=== PATIENT | male | born 1995 | race Caucasian/White ===

== ENCOUNTER 2025-02-07 07:42 | Day surgery (SDC) | payer BC ==
[2025-02-06 09:49] VITALS: BMI 21.6
[2025-02-07] MEDS ORDERED: PROPOFOL 20 ML ONE ×2 (09:45→11:25)
[2025-02-07] MEDS ORDERED: Rocuronium Bromide 10 MG/ML (10ML VIAL) ONE (09:45)
[2025-02-07 10:33] LABS: #Basophils Less than 0.03 10x3/uL (0.0-0.2); #Eosinophils Less than 0.03 10x3/uL (0.0-0.7); #Monocytes 0.98 10x3/uL (0.11-0.59); #Neutrophils 12.03 10x3/uL (1.40-6.50); %Basophils 0.1 % (0.0-1.0); %Eosinophils 0.0 % (0.0-10.0); %Lymphocytes 5.1 % (21.0-51.0); %Monocytes 7.1 % (0.0-10.0); %Neutrophils 86.7 % (42.0-75.0); Hematocrit 47.5 % (42.0-52.0); Hemoglobin 15.8 g/dL (14.0-18.0); Mean Corpuscular Hemoglobin 29.3 pg (27.0-31.0); Mean Corpuscular Volume 88.0 fL (78.0-98.0); Platelet Count 282 10x3/uL (130-400); Red Blood Cell (RBC) Count 5.40 mill/uL (4.70-6.10); White Blood Cell (WBC) Count 13.86 10x3/uL (4.8-10.8)
[2025-02-07] MEDS ORDERED: Thrombin 5000 UNITS/5 ML VIAL ONE (10:48)
[2025-02-07] MEDS ORDERED: CEFAZOLIN 1 GM VIAL ONE (11:15)
[2025-02-07] MEDS ORDERED: Ketamine In 0.9 % NaCl 50 MG/5 ML SYRINGE ONE (11:22)
[2025-02-07] MEDS ORDERED: Ondansetron PF 4 MG/2 ML Vial ONE (11:24)
[2025-02-07] MEDS ORDERED: SUGAMMADEX SODIUM 200 MG/2 ML VIAL ONE (12:13)
[2025-02-07] MEDS ORDERED: CEFAZOLIN 2 GM VIAL ONE (15:32)
== END 2025-02-07 16:50 | disposition home or self-care (01) ==
LOC: SDC 07:42
PROVIDERS: ATTEND Neurological Surgery
PROC: 00NY0ZZ Release Lumbar Spinal Cord, Open Approach (ICD-10-PCS; principal; 2025-02-07)
PROC: 0SB20ZZ Excision of Lumbar Vertebral Disc, Open Approach (ICD-10-PCS; principal; 2025-02-07)
DX: M51.16 Intervertebral disc disorders with radiculopathy, lumbar region (principal)
CPT/HCPCS: 36416; 85025; 93005; 93010; J0169; J0665; J0690; J1100; J2250; J2704; J3010; J3490